=== PATIENT | male | born 1960 | race Two or more races ===

== ENCOUNTER 2020-09-24 15:08 | Emergency (ER) | payer MEDICAID, OTHER ==
[~2020-09-24] VITALS: Ht 152.4 cm; Wt 81.6 kg
[2020-09-24 15:27] VITALS: BP 156/84
[2020-09-24] MEDS ORDERED: TETRACAINE HCL 0.5% OPTH(EYE) SOLN 4ML LEFTEYE ONE (16:45)
[2020-09-24] MEDS ORDERED: FLUORESCEIN SOD 1 MG TEST STRIP LEFTEYE ONE (16:45)
== END 2020-09-24 17:35 | disposition home or self-care (01) ==
LOC: ER 15:08
DX: S05.02XA Injury of conjunctiva and corneal abrasion without foreign body, left eye, initial encounter (principal); E11.9 Type 2 diabetes mellitus without complications; I10 Essential (primary) hypertension; X58.XXXA Exposure to other specified factors, initial encounter; Y93.89 Activity, other specified; Y92.89 Other specified places as the place of occurrence of the external cause; Y99.8 Other external cause status